=== PATIENT | male | born 1945 | race Caucasian/White ===

== ENCOUNTER 2016-12-03 10:50 | Emergency (ER) | payer MEDICARE, OTHER ==
[2016-12-03 09:31] LABS: BASOPHILS 0.2 %; BASOPHILS ABSOLUTE 0.01 10/3/uL (0.0-0.16); EOSINOPHILS 5.7 %; EOSINOPHILS ABSOLUTE 0.36 10/3/uL (0.0-0.53); HEMATOCRIT 36.4 % (40.0-51.0); HEMOGLOBIN 12.9 g/dL (13.6-17.8); IMMATURE GRANULOCYTES 0.2 %; IMMATURE GRANULOCYTES ABSOLUTE 0.01 10/3/uL (0.0-0.11); LYMPHOCYTES 21.9 %; LYMPHOCYTES ABSOLUTE 1.38 10/3/uL (0.67-4.30); MEAN CORPUS HGB CONC 35.4 g/dL (32.0-36.0); MEAN CORPUSCULAR HEMOGLOB 32.4 pg (26.0-34.0); MEAN CORPUSCULAR VOLUME 91.5 fL (80-100); MONOCYTES 4.4 %; MONOCYTES ABSOLUTE 0.28 10/3/uL (0.21-1.20); NEUTROPHILS 67.6 %; NEUTROPHILS ABSOLUTE 4.26 10/3/uL (2.02-8.40); PLATELET COUNT 169 10/3/uL (150-400); RBC DISTRIBUTION WIDTH 13.2 % (12.0-16.0); RED CELL COUNT 3.98 10/6/uL (4.7-6.1); WHITE BLOOD CELLS 6.3 10/3/uL (4.5-10.5)
[2016-12-03 09:32] LABS: MANUAL DIFF NO %
[2016-12-03 09:39] LABS: INTERNATIONAL NORMAL RATI 1.2 UNITS (-); PARTIAL THROMBO TIME 32.4 SEC (22.5-37.2); PROTIME (NOT ORD) 14.7 SEC (12.0-14.5)
[2016-12-03 09:47] LABS: BUN (BLOOD UREA NITROGEN) 32 MG/DL (6-23); CALCIUM, SERUM 8.9 MG/DL (8.5-10.4); CHEST PAIN PROFILE TAT 0 Hrs 20 Mins; CHLORIDE, SERUM 105 MMOL/L (96-112); CO2 (CARBON DIOXIDE) 26 MMOL/L (24-34); CREATININE 1.66 MG/DL (0.70-1.30); GFR AFRICAN AMERICAN 47 ML/MIN (>=60); GFR NON AFRICAN AMERICAN 41 ML/MIN (>=60); GLUCOSE, SERUM 169 MG/DL (60-99); POTASSIUM, SERUM 3.9 MMOL/L (3.5-5.3); SODIUM, SERUM 141 MMOL/L (135-148); TROPONIN I <0.02 NG/ML (<0.05)
[2017-02-09] MEDS ORDERED: ASA5GR PO (16:20)
[2017-02-09] MEDS ORDERED: NORV10 PO (16:20)
[2017-02-09] MEDS ORDERED: ATEN50 PO (16:21)
[2017-02-09] MEDS ORDERED: COREG6 PO (16:21)
[2017-02-09] MEDS ORDERED: CELEXA20 PO (16:22)
[2017-02-09] MEDS ORDERED: CETIRIZINE HCL5 MG PO (16:22)
[2017-02-09] MEDS ORDERED: MIRAPEX5 PO (16:23)
[2017-02-09] MEDS ORDERED: GLUCOTROL5 PO (16:23)
[2017-02-09] MEDS ORDERED: MAXZIDE PO (16:23)
[2017-02-09] MEDS ORDERED: LISINOPRIL40 MG PO (16:23)
[2017-02-09] MEDS ORDERED: MULTIVITAMI1 PO (16:24)
[2017-02-09] MEDS ORDERED: VITE PO (16:24)
[2017-02-09] MEDS ORDERED: VITC500 PO (16:24)
[2017-02-09] MEDS ORDERED: FISH OIL1200 MG PO (16:24)
== END 2016-12-03 15:12 | disposition home or self-care (01) ==
LOC: ER 10:50
PROVIDERS: Nurse Practitioner
DX: I12.9 Hypertensive chronic kidney disease with stage 1 through stage 4 chronic kidney disease, or unspecified chronic kidney disease (principal); N18.9 Chronic kidney disease, unspecified; G20 Parkinson's disease; G35 Multiple sclerosis
CPT/HCPCS: 71010; 80048; 83735; 83880; 84484; 85025; 85610; 85730; 93005; 99284

== ENCOUNTER 2017-02-13 10:28 | Inpatient (IN) | payer MEDICARE, OTHER ==
--- NOTE | ~2017-02-13 | CN ---
Consultation Report [place] [address] [facility] [place]. [address] NAME: SIMBA ZAYAS : 45 STATUS : ADM IN PAT#: [id number] AGE: 71 ADM/REG DATE : 02/13/17 MR#: [id number] REPORT SERV DATE: 02/14/17 DICTATED BY: RAMOS MEDLEY DATE: 02/13/17 REPORT STATUS : Draft TRANSCRIBED BY: MODL DATE: 02/13/17 CONSULTATION. DATE OF CONSULTATION: 02/13/2017 PERTINENT HISTORY: The patient is a 71-year-old gentleman from Dr. Ernie Ordoñez from the [facility] with very critical left main coronary stenosis noted to be approximately 98% in maximal diameter metric stenotic lesion. The patient referred for emergent cardiac surgical revascularization. PAST MEDICAL HISTORY: Significant for no previous open cardiothoracic surgery, with history of hypertension, hyperlipidemia. No previous myocardial infarction. No previous stroke. SOCIAL HISTORY: Negative for tobacco or ethanol use. FAMILY HISTORY: Noncontributory. REVIEW OF SYSTEMS: Significant only for the recent onset of chest pain. PHYSICAL EXAMINATION: VITAL SIGNS: Afebrile, blood pressure was 160/90, heart rate was 70. CONSTITUTIONAL: Well-developed, well-nourished male. He was in no acute distress. RESPIRATORY: Showed chest was clear bilaterally. CV: Showed regular rhythm. No murmur noted. VASCULAR: Showed full pulses throughout. GI: Showed abdomen is soft, nontender without masses. MUSCULOSKELETAL: Shows extremities warm and dry. No edema. SKIN: Showed no obvious rash. : Showed normal male external genitalia. PSYCH: Normal. NEUROLOGIC: Intact. The cardiac catheterization reviewed by myself showed graded 95% stenosis of the left main coronary artery with a very small diminutive LAD artery but with a large first diagonal artery, also large circumflex artery. Right coronary artery showed no significant disease. Left ventricular function is preserved. IMPRESSION: Right now is critical left main coronary artery stenosis. PLAN: Proceed with coronary revascularization urgently. /MODL Consultation Report [place] [address] [facility] [place]. [address] NAME: SIMBA ZAYAS : 45 STATUS : ADM IN PAT#: [id number] AGE: 71 ADM/REG DATE : 02/13/17 MR#: [id number] REPORT SERV DATE: 02/14/17 DICTATED BY: RAMOS MEDLEY DATE: 02/13/17 REPORT STATUS : Draft TRANSCRIBED BY: MARGARITA DATE: 02/13/17 Ramos Medley M.D. / [id number] CC: Varun Schulz MD
--- NOTE | ~2017-02-13 | CN ---
Consultation Report [facility] [address] [place]. [address] NAME: SIMBA ZAYAS : 45 STATUS : ADM IN PAT#: [id number] AGE: 71 ADM/REG DATE : 02/13/17 MR#: [id number] REPORT SERV DATE: 02/16/17 DICTATED BY: LEXIE CUETO DATE: 02/16/17 REPORT STATUS : Draft TRANSCRIBED BY: MODL DATE: 02/16/17 CONSULTATION DATE OF CONSULTATION: 02/16/2017 REASON FOR CONSULTATION: Management of type 2 diabetes mellitus. IMPRESSION: 1. Type 2 diabetes mellitus. 2. Parkinson disease. 3. Hypertension. 4. Cardiovascular disease, status post CABG. 5. Dysphagia postoperative. 6. Chronic kidney disease, stage 3. 7. Acute blood loss anemia. 8. Thrombocytopenia. PLAN: Start patient on level 2 sliding scale as ordered. Hold oral diabetic medications in this patient who is kept n.p.o. Check a hemoglobin A1c. Diabetic education to see. At this time, he does not have any significant evidence of tremors. Will continue Mirapex and it seems to have managed his Parkinson's really well. A swallow study has already been ordered for his dysphagia and will be followed up. We will check fingerstick blood glucose at bedtime and before meals. We thank you for this consultation, and the hospitalist department will follow with you. BRIEF HISTORY OF PRESENT ILLNESS: The patient is a 71-year-old white male, presented to the hospital with exertion, burning sensation in the left side of his chest and worsening shortness of breath, so he was admitted. He underwent cardiac catheterization, found to have a multivessel coronary artery disease, and then was taken to the operating room. Postoperatively, this patient had some elevated sugars. He was a known diabetic. Medicine Service was asked to see the patient. This patient reports that he is feeling well. His pain is well controlled. He is currently n.p.o. because evidence of having some difficulty swallowing and started choking and coughing when he tried to swallow any type of liquids. He denies any chest pain. He denies any nausea, vomiting, fever, chills. He has not had a bowel movement yet. The rest of the 10-point review of systems was negative. PAST MEDICAL HISTORY: Significant for cardiovascular disease, hypertension, type 2 diabetes mellitus, ventricular fascicular block, obesity, Parkinson disease. PAST SURGICAL HISTORY: Significant for a skin cancer removed from the nose and a recent coronary artery bypass graft. ALLERGIES: NO KNOWN DRUG ALLERGIES. Consultation Report [address] [place]. [address] NAME: SIMBA ZAYAS : 45 STATUS : ADM IN PAT#: [id number] AGE: 71 ADM/REG DATE : 02/13/17 MR#: [id number] REPORT SERV DATE: 02/16/17 DICTATED BY: LEXIE CUETO DATE: 02/16/17 REPORT STATUS : Draft TRANSCRIBED BY: MARGARITA DATE: 02/16/17 HOME MEDICATIONS: Amlodipine 10 mg once daily, vitamin C 1000 mg once daily, aspirin 325 mg daily, Tenormin 50 mg p.o. daily, Zyrtec 5 mg once daily, Celexa 20 mg once daily, Glucotrol 5 mg once daily, lisinopril 40 mg once daily, multivitamins one tablet daily, fish oil 1200 mg once daily, Mirapex 0.5 mg p.o. three times daily, vitamin E 400 units once daily, and Maxzide 50 mg tablet once p.o. daily. SOCIAL HISTORY: The patient denies use of alcohol, tobacco, or illicit substances. Lives at home. FAMILY HISTORY: Father with multiple heart attacks and coronary artery disease. Mother with Parkinson disease. PHYSICAL EXAMINATION: GENERAL: White male, lying in bed, appears to be in no obvious respiratory distress. He is awake and alert. He is oriented. VITAL SIGNS: Blood pressure is 125/68, saturation 97% on 4 L of nasal cannula, temperature is 98.2. HEENT: Head is normocephalic, atraumatic. Pupils are equal, round, and reactive to light. Extraocular muscles are intact. Sclerae anicteric. Conjunctivae normal. Oropharynx without lesion. Tongue protrudes in midline. Uvula midline. NECK: Supple. No evidence of jugular venous distention. No carotid bruits or thyromegaly is appreciated. The line insertions in the right neck have been removed and well dressed. There is no oozing or bleeding noted. HEART: Regular rate and rhythm. No murmurs, rubs, or gallops are heard. PMI is nondisplaced. LUNGS: Fairly clear to auscultation anteriorly. Some expiratory wheezing in both axillary areas is noted. ABDOMEN: Soft, nontender, good bowel sounds. No rebound or guarding. No organomegaly. EXTREMITIES: Without cyanosis, clubbing, or edema. NEUROLOGIC: There is no rigidity, no cogwheeling. Rest of the neurological exam seem to be grossly intact. LABORATORY DATA: Sodium 141, potassium 4.3, chloride 110, bicarb 24, BUN 38, creatinine 2.15, baseline creatinine around 1.6 with patient's known history of chronic kidney disease. Glucose is 101, magnesium is 2.0, calcium is 8.8. No hemoglobin A1c was done during this admission. White count is 10.7, hemoglobin of 8.6, hematocrit 25, platelet count is 93. No left shift. INR is 1.5, PT is 18. Once again, we thank you for this consultation, and we will follow with you. LADAN/MARGARITA [facility] Consultation Report [place] [id number] [place]. [address] NAME: SIMBA ZAYAS : 45 STATUS : ADM IN [facility]#: [id number] AGE: 71 ADM/REG DATE : 02/13/17 MR#: [id number] REPORT SERV DATE: 02/16/17 DICTATED BY: LEXIE CUETO P. DATE: 02/16/17 REPORT STATUS : Draft TRANSCRIBED BY: MARGARITA DATE: 02/16/17 Varun Cueto / [id number] CC: Varun Schulz RONNIE LEE
--- NOTE | ~2017-02-13 | OP ---
Record Of Operation [facility] [address] [place]. [address] NAME: SIMBA ZAYAS : 45 STATUS : ADM IN PAT#: [id number] AGE: 71 ADM/REG DATE : 02/13/17 MR#: [id number] REPORT SERV DATE: 02/14/17 DICTATED BY: RAMOS MEDLEY DATE: 02/13/17 REPORT STATUS : Draft TRANSCRIBED BY: MODL DATE: 02/13/17 DATE OF PROCEDURE: 02/13/2017 PREOPERATIVE DIAGNOSIS: Left main coronary artery stenosis. POSTOPERATIVE DIAGNOSIS: Left main coronary artery stenosis. PROCEDURE: Emergent coronary artery bypass graft x2 with endoscopic vein harvest utilizing left internal mammary artery to the LAD artery and reverse saphenous vein graft from the aorta to the obtuse marginal artery. Also transesophageal echocardiography. SURGEON: Ramos Medley M.D. ANESTHESIA: General endotracheal anesthesia, AA. Chest tubes placed were two. Pacing wires two on the right ventricle and two on the right atrium. PERTINENT HISTORY: The patient is a 71-year-old gentleman, referred emergently to the lab[facility] by Dr. Ordoñez with left main coronary artery stenosis noted to be approximately greater than 95%. OPERATIVE FINDINGS: Transesophageal echocardiogram demonstrated no significant valvular heart disease. DESCRIPTION OF PROCEDURE: The patient was taken to the operating room and placed in supine position. Anesthesia was obtained. The patient was prepped and draped in the usual sterile fashion. Transesophageal echocardiogram was performed demonstrating no valvular heart disease. The greater saphenous vein was harvested from the lower extremities with invasive technique and those wounds were closed in a two-layer fashion. A midline sternotomy incision was made. Sternum was divided. The left internal mammary artery was dissected and found to have good flow. Heparin was infused. The patient was started on cardiopulmonary bypass. Cross-clamp was applied. Cardioplegia was infused in antegrade retrograde fashion over a period of 15 minutes. The obtuse marginal artery was bypassed with reversed saphenous vein graft in an end-to-side fashion. The cross-clamp was then placed with single proximal anastomosis and sewn to the ascending aorta in the usual manner. The left internal mammary artery was then used to bypass the LAD artery in an end-to-side fashion. The cross- clamp was then removed. Good hemostasis was noted. Two pacing wires were placed on the right ventricle and two on the right atrium and two chest tubes were placed. The patient was warmed to 36 centigrade and maintained a sinus rhythm. He was weaned from cardiopulmonary bypass with mild inotropic support. Protamine sulfate was infused. Hemostasis was adequate. Sternum was closed with four sternal cables. Soft tissue was closed in the usual manner. Sterile dressings were applied. The patient tolerated the procedure well and taken back to the ICU in stable condition. Record Of Operation [address] [place]. [address] NAME: SIMBA ZAYAS : 45 STATUS : ADM IN [facility]#: [id number] AGE: 71 ADM/REG DATE : 02/13/17 MR#: [id number] REPORT SERV DATE: 02/14/17 DICTATED BY: RAMOS MEDLEY DATE: 02/13/17 REPORT STATUS : Draft TRANSCRIBED BY: MARGARITA DATE: 02/13/17 HANK/MARGARITA Ramos Medley M.D. / [id number] CC: Varun Schulz Ronnie Lee
--- NOTE | ~2017-02-13 | DS ---
Discharge Summary [facility] [address] [place]. [address] NAME: SIMBA ZAYAS : 45 STATUS : DIS IN PAT#: [id number] AGE: 71 ADM/REG DATE : 02/13/17 MR#: [id number] REPORT SERV DATE: 03/01/17 DICTATED BY: RAMOS MEDLEY DATE: 03/01/17 REPORT STATUS : Draft TRANSCRIBED BY: MARGARITA DATE: 03/01/17 Data Collection from hospitalization DISCHARGE DIAGNOSIS(ES): 1. Left main coronary artery stenosis. 2. Class 2 angina. 3. Hypertension. 4. Hyperlipidemia. 5. Type 2 diabetes mellitus. 6. Obesity. 7. Parkinson disease. CONSULTATIONS: Ernie Ordoñez M.D. and Daniel Cueto M.D. PROCEDURES PERFORMED: 1. Left heart catheterization, left ventriculography, coronary angiography, 02/13/2017. 2. Emergent coronary artery bypass graft x2 with endoscopic vein harvest utilizing left internal mammary artery to the LAD artery and reverse saphenous vein graft from the aorta to the obtuse marginal artery, also transesophageal echocardiography, 02/13/2017. MEDICATIONS: Norvasc 10 mg daily, aspirin 325 mg daily, Celexa 20 mg daily, Plavix 75 mg daily. Zyrtec 5 mg daily, multivitamin without minerals daily, fish oil 1200 mg daily, Mirapex 0.5 mg three times daily, vitamin E 400 units daily, Maxzide one daily, Glucotrol 5 mg daily, vitamin C 1000 mg daily, and [place] 5/325 one or two every 4 hours as needed. CONDITION AT DISCHARGE: Upon discharge, he did appear to be doing well and had no complaints. DISPOSITION: He had been discharged home to continue an 1800-calorie ADA diet with activity as discussed. He was to follow up with Dr. Ernie Ordoñez on 03/06/2017, follow up with myself on 03/12/2017, and follow up with Elmer Corona in three to four weeks. HOSPITAL COURSE: This 71-year-old male had stated that with exertion he had burning sensation in the left side of his chest and worsening shortness of breath. He had not had any syncope or edema. He was admitted for further evaluation and treatment. Upon admission to the hospital, he did undergo the above left heart catheterization. He tolerated this well and was transferred to the recovery room secondary to the findings of the catheterization. I had seen the patient in consultation and had discussed coronary bypass grafting with him in detail and he was agreeable to proceed. He was then taken to the operating room where he did undergo the above emergent coronary artery bypass graft x2. He had tolerated this procedure well also and was transferred to the recovery room in satisfactory condition. On postop day #1, he did appear to be in stable condition and had no new complaints. He was on sliding scale insulin level 2 for blood glucose control for his diabetes. He was felt to be hemodynamically and rhythmically stable. On postop day #2, he did continue to do well and his pacing wires were removed. He was afebrile, and his vital signs were stable. On postop day #3, he had been evaluated by Dr. Daniel Cueto for management of his type 2 diabetes. He had been placed on level 2 sliding scale insulin as ordered, and his oral diabetic medications were on hold while he is n.p.o. Hemoglobin A1c Discharge Summary [address] [address] NAME: SIMBA ZAYAS : 45 STATUS : DIS IN PAT#: [id number] AGE: 71 ADM/REG DATE : 02/13/17 MR#: [id number] REPORT SERV DATE: 03/01/17 DICTATED BY: RAMOS MEDLEY DATE: 03/01/17 REPORT STATUS : Draft TRANSCRIBED BY: MARGARITA DATE: 03/01/17 was also to be checked, and he was to undergo diabetic education while in the hospital. He was continued on Mirapex as it seemed to have managed his Parkinson's really well. He did however have some complaints of nausea. He was noted to be in sinus rhythm on telemetry. His metoprolol was increased. He did undergo a bedside swallowing evaluation and a regular diet with thin liquids was recommended. He did undergo diabetic education. On postop day #4, he was afebrile and his vital signs had remained stable. He did continue in sinus rhythm on telemetry and had no new complaints noted. His Nitrol ointment was changed to Nitro-Dur. On postop day #5, he did state that he was feeling better, and he continued to do well. However, he was noted to be feeling somewhat weak. He did remain in stable condition and was then discharged on 02/19/2017 with the above instructions. Information collected by: Jennifer Goldsmith. I submit the above information as my discharge summary. IRAIS/MARGARITA Ramos Medley M.D. / [id number] CC: Varun Schulz M.D.
--- NOTE | ~2017-02-13 | OP ---
Record Of Operation [facility] [address] [place]. [address] NAME: SIMBA ZAYAS : 45 STATUS : ADM IN PAT#: [id number] AGE: 71 ADM/REG DATE : 02/13/17 MR#: [id number] REPORT SERV DATE: 02/14/17 DICTATED BY: CHARLENE ORDOÑEZ DATE: 02/13/17 REPORT STATUS : Draft TRANSCRIBED BY: MODL DATE: 02/13/17 DATE OF PROCEDURE: 02/13/2017 PROCEDURE: Left heart catheterization, left ventriculography, coronary angiography. INDICATIONS: Class 2 angina, jeopardy on myocardial perfusion scan. JAVASCRIPT UI DEVELOPER: Charlene Ordoñez M.D., [facility], [facility]. PROCEDURE NOTE: Informed consent obtained. The patient was brought to catheterization laboratory in the fasting state with renal prophylaxis protocol initiated. Routine sterile prep and drape performed. Monitored sedation administered. 2% Xylocaine with epinephrine infiltrated to right groin. A 6-[place] sheath to right femoral artery following anterior wall puncture. A 6-[place] angled pigtail catheter across the aortic valve without difficulty. Left ventricular pressures recorded. Left ventriculography in DENG projection. Pullback to ascending aorta under pressure recording. Catheter exchanged for 6-[place] JL4 diagnostic catheter, which engaged the ostium of left main coronary artery with pressure dampening. Coronary angiography performed in multiple views revealing critical left main coronary artery disease. Heparin and intravenous nitroglycerin were begun with a gradual relief of symptoms. Catheter exchanged for 6-[place] JR4 diagnostic catheter which engaged ostium of right coronary artery and angiography of this vessel performed. All catheters removed. Sheath sutured to the skin in a "strain-relieved" fashion. Cardiac surgery consulted emergently in anticipation of urgent CABG. TOTAL CONTRAST: 85 mL Isovue-370. TOTAL X-RAY DOSE: 479 mGy. MONITORED SEDATION: 34 minutes. ESTIMATED BLOOD LOSS: 10 mL. FINDINGS: Hemodynamics: Central aortic pressure 160/60 mmHg, mean 100 mmHg (prior to initiation of nitroglycerin dose). Left ventricular pressure 160/20 mmHg. Left Ventriculography: In DENG left ventriculography, all segments moved normally. Ejection fraction is estimated to be no lower than 55%. No mitral regurgitation identified. Coronaries: 1. Left main coronary artery: Short and calcified vessel with diffuse disease and 90 plus percent pre-bifurcation narrowing. Streaming in the left main coronary artery identified which may represent dissection and/or thrombus. 2. LAD: Small caliber vessel barely reaching the apex of the heart. Large high diagonal vessel fills antegrade. 3. Circumflex: Large caliber, angiographically nondominant vessel giving rise to small ramus intermedius vessel, medium caliber first obtuse marginal vessel and terminating Record Of Operation [address] [place]. [address] NAME: SIMBA ZAYAS : 45 STATUS : ADM IN PAT#: [id number] AGE: 71 ADM/REG DATE : 02/13/17 MR#: [id number] REPORT SERV DATE: 02/14/17 DICTATED BY: CHARLENE ORDOÑEZ DATE: 02/13/17 REPORT STATUS : Draft TRANSCRIBED BY: MARGARITA DATE: 02/13/17 as posterolateral artery. 4. Right coronary artery medium caliber, angiographically dominant vessel terminating as posterolateral and posterior descending arteries. FINAL IMPRESSION: 1. Mildly elevated LVEDP. 2. Normal LVEF without segmental wall motion abnormalities. 3. No mitral regurgitation. 4. Critical left main coronary artery ostial stenosis. 5. Patent left anterior descending artery, circumflex, and right coronary arteries. 6. Emergent CABG recommended. /MARGARITA Charlene Ordoñez M.D. / [id number] CC: Ramos Medley M.D.
[~2017-02-13 10:28] MED LIST: ASA5GR PO; ATEN50 PO; CELEXA20 PO; CETIRIZINE HCL5 MG PO; COREG6 PO; FISH OIL1200 MG PO; GLUCOTROL5 PO; LISINOPRIL40 MG PO; MAXZIDE PO; MIRAPEX5 PO; MULTIVITAMI1 PO; NORV10 PO; VITC500 PO; VITE PO
[2017-02-13 11:18] LABS: BASOPHILS 0.2 %; BASOPHILS ABSOLUTE 0.01 10/3/uL (0.0-0.16); EOSINOPHILS 5.6 %; EOSINOPHILS ABSOLUTE 0.37 10/3/uL (0.0-0.53); HEMATOCRIT 35.4 % (40.0-51.0); HEMOGLOBIN 12.1 g/dL (13.6-17.8); IMMATURE GRANULOCYTES 0.2 %; IMMATURE GRANULOCYTES ABSOLUTE 0.01 10/3/uL (0.0-0.11); LYMPHOCYTES 31.8 %; MEAN CORPUS HGB CONC 34.2 g/dL (32.0-36.0); MEAN CORPUSCULAR HEMOGLOB 31.5 pg (26.0-34.0); MEAN CORPUSCULAR VOLUME 92.2 fL (80-100); MEAN PLATELET VOLUME 10.3 fL (9.2-13.0); MONOCYTES 4.2 %; MONOCYTES ABSOLUTE 0.28 10/3/uL (0.21-1.20); NEUTROPHILS ABSOLUTE 3.84 10/3/uL (2.02-8.40); PLATELET COUNT 150 10/3/uL (150-400); RBC DISTRIBUTION WIDTH 13.8 % (12.0-16.0); RED CELL COUNT 3.84 10/6/uL (4.7-6.1); WHITE BLOOD CELLS 6.6 10/3/uL (4.5-10.5)
[2017-02-13 11:19] LABS: MANUAL DIFF NO %
[2017-02-13 11:30] LABS: BUN (BLOOD UREA NITROGEN) 32 MG/DL (6-23); CALCIUM, SERUM 8.7 MG/DL (8.5-10.4); CHLORIDE, SERUM 110 MMOL/L (96-112); CO2 (CARBON DIOXIDE) 27 MMOL/L (24-34); CREATININE 1.66 MG/DL (0.70-1.30); GFR AFRICAN AMERICAN 47 ML/MIN (>=60); GFR NON AFRICAN AMERICAN 41 ML/MIN (>=60); POTASSIUM, SERUM 4.1 MMOL/L (3.5-5.3); SODIUM, SERUM 141 MMOL/L (135-148)
[2017-02-13 11:31] LABS: GLUCOSE, SERUM 126 MG/DL (60-99)
[2017-02-13 22:11] LABS: BE (BASE EXCESS) -4.7 MEQ/L (0 +/- 2.5); CARBOXYHEMOGLOBIN 0.3 % (0-3); HCO3 (ACTUAL BICARBONATE) 20.7 MEQ/L (23-27); HEMOBLOGIN CONTENT 10.5 G/DL (14-18); INSTRUMENT SERIAL # 11843; METHEMOGLOBIN 0.7 % (0-3); MODE SIMV; OPERATOR ID 32193; PCO2 (CO2 TENSION) 39 MMHG (35-45); PO2 (O2 TENSION) 241 MMHG (79-93); SAMPLE Arterial; TIDAL VOLUME 600 ML; pH 7.34 (7.37-7.43)
[2017-02-13 22:16] LABS: BASOPHILS 0.1 %; BASOPHILS ABSOLUTE 0.01 10/3/uL (0.0-0.16); EOSINOPHILS 3.9 %; EOSINOPHILS ABSOLUTE 0.41 10/3/uL (0.0-0.53); HEMOGLOBIN 9.9 g/dL (13.6-17.8); IMMATURE GRANULOCYTES 0.2 %; IMMATURE GRANULOCYTES ABSOLUTE 0.02 10/3/uL (0.0-0.11); LYMPHOCYTES 16.7 %; LYMPHOCYTES ABSOLUTE 1.75 10/3/uL (0.67-4.30); MEAN CORPUS HGB CONC 34.7 g/dL (32.0-36.0); MEAN CORPUSCULAR HEMOGLOB 31.9 pg (26.0-34.0); MEAN CORPUSCULAR VOLUME 91.9 fL (80-100); MEAN PLATELET VOLUME 9.9 fL (9.2-13.0); MONOCYTES 3.2 %; MONOCYTES ABSOLUTE 0.33 10/3/uL (0.21-1.20); NEUTROPHILS 75.9 %; NEUTROPHILS ABSOLUTE 7.93 10/3/uL (2.02-8.40); PLATELET COUNT 119 10/3/uL (150-400); RBC DISTRIBUTION WIDTH 13.7 % (12.0-16.0)
[2017-02-13 22:18] LABS: HEMATOCRIT 28.5 % (40.0-51.0); MANUAL DIFF NO %; WHITE BLOOD CELLS 10.5 10/3/uL (4.5-10.5)
[2017-02-13 22:24] LABS: INTERNATIONAL NORMAL RATI 1.6 UNITS (-); PARTIAL THROMBO TIME 38.2 SEC (22.5-37.2); PROTIME (NOT ORD) 18.5 SEC (12.0-14.5)
[2017-02-13 22:36] LABS: CHLORIDE, SERUM 116 MMOL/L (96-112); CO2 (CARBON DIOXIDE) 23 MMOL/L (24-34); GFR AFRICAN AMERICAN 54 ML/MIN (>=60); GFR NON AFRICAN AMERICAN 46 ML/MIN (>=60); GLUCOSE, SERUM 127 MG/DL (60-99); POTASSIUM, SERUM 4.1 MMOL/L (3.5-5.3); SODIUM, SERUM 145 MMOL/L (135-148)
[2017-02-13 22:38] LABS: BUN (BLOOD UREA NITROGEN) 26 MG/DL (6-23)
[2017-02-14 03:18] LABS: HEMATOCRIT 30.8 % (40.0-51.0); HEMOGLOBIN 10.5 g/dL (13.6-17.8); MEAN CORPUS HGB CONC 34.1 g/dL (32.0-36.0); MEAN CORPUSCULAR HEMOGLOB 31.8 pg (26.0-34.0); MEAN CORPUSCULAR VOLUME 93.3 fL (80-100); MEAN PLATELET VOLUME 10.1 fL (9.2-13.0); PLATELET COUNT 146 10/3/uL (150-400); RBC DISTRIBUTION WIDTH 13.6 % (12.0-16.0); WHITE BLOOD CELLS 13.4 10/3/uL (4.5-10.5)
[2017-02-14 03:19] LABS: MANUAL DIFF YES %
[2017-02-14 03:30] LABS: BUN (BLOOD UREA NITROGEN) 27 MG/DL (6-23); CALCIUM, SERUM 8.4 MG/DL (8.5-10.4); CHLORIDE, SERUM 117 MMOL/L (96-112); CO2 (CARBON DIOXIDE) 23 MMOL/L (24-34); CREATININE 1.74 MG/DL (0.70-1.30); GFR AFRICAN AMERICAN 45 ML/MIN (>=60); GFR NON AFRICAN AMERICAN 39 ML/MIN (>=60); POTASSIUM, SERUM 4.2 MMOL/L (3.5-5.3); SODIUM, SERUM 148 MMOL/L (135-148)
[2017-02-14 03:31] LABS: GLUCOSE, SERUM 86 MG/DL (60-99)
[2017-02-14 03:37] LABS: BAND NEUTROPHILS 17 %; LYMPHOCYTES 9 %; LYMPHOCYTES ABSOLUTE (CALC) 1.21 10/3/uL (0.67-4.30); NEUTROPHILS ABSOLUTE (CALC) 12.19 10/3/uL (2.02-8.40); PLATELET ESTIMATE SLT DEC (ADEQUATE); RBC MORPHOLOGY NORM (NORMAL); SEGMENTED NEUTROPHIL (0) 74 %; TOTAL NUCLEATED CELLS 100
[2017-02-14 04:04] LABS: BE (BASE EXCESS) -6.9 MEQ/L (0 +/- 2.5); CARBOXYHEMOGLOBIN 0.5 % (0-3); DEVICE NC; HCO3 (ACTUAL BICARBONATE) 18.8 MEQ/L (23-27); HEMOBLOGIN CONTENT 10.8 G/DL (14-18); INSTRUMENT SERIAL # 8083; METHEMOGLOBIN 0.2 % (0-3); O2 CONTENT 14.7 VOL% (18-24); OPERATOR ID 32193; PCO2 (CO2 TENSION) 39 MMHG (35-45); PO2 (O2 TENSION) 100 MMHG (79-93); SAMPLE Arterial; pH 7.31 (7.37-7.43)
[2017-02-14 14:33] LABS: HEMOGLOBIN 9.4 g/dL (13.6-17.8)
[2017-02-14 14:34] LABS: HEMATOCRIT 27.2 % (40.0-51.0)
[2017-02-14 14:43] LABS: POTASSIUM, SERUM 4.2 MMOL/L (3.5-5.3)
[2017-02-14 18:33] LABS: HEMATOCRIT 27.5 % (40.0-51.0); HEMOGLOBIN 9.6 g/dL (13.6-17.8)
[2017-02-14 18:58] LABS: INTERNATIONAL NORMAL RATI 1.5 UNITS (-); PARTIAL THROMBO TIME 39.1 SEC (22.5-37.2); PROTIME (NOT ORD) 18.1 SEC (12.0-14.5)
[2017-02-15 04:31] LABS: BASOPHILS 0.2 %; BASOPHILS ABSOLUTE 0.02 10/3/uL (0.0-0.16); EOSINOPHILS 0.6 %; EOSINOPHILS ABSOLUTE 0.08 10/3/uL (0.0-0.53); HEMATOCRIT 25.9 % (40.0-51.0); HEMOGLOBIN 8.9 g/dL (13.6-17.8); IMMATURE GRANULOCYTES 0.1 %; IMMATURE GRANULOCYTES ABSOLUTE 0.01 10/3/uL (0.0-0.11); LYMPHOCYTES 11.5 %; LYMPHOCYTES ABSOLUTE 1.44 10/3/uL (0.67-4.30); MEAN CORPUS HGB CONC 34.4 g/dL (32.0-36.0); MEAN CORPUSCULAR HEMOGLOB 31.8 pg (26.0-34.0); MEAN CORPUSCULAR VOLUME 92.5 fL (80-100); MEAN PLATELET VOLUME 10.2 fL (9.2-13.0); MONOCYTES 4.9 %; MONOCYTES ABSOLUTE 0.62 10/3/uL (0.21-1.20); NEUTROPHILS 82.7 %; NEUTROPHILS ABSOLUTE 10.37 10/3/uL (2.02-8.40); WHITE BLOOD CELLS 12.5 10/3/uL (4.5-10.5)
[2017-02-15 04:33] LABS: MANUAL DIFF NO %; PLATELET COUNT 100 10/3/uL (150-400)
[2017-02-15 04:47] LABS: BUN (BLOOD UREA NITROGEN) 28 MG/DL (6-23); CALCIUM, SERUM 8.6 MG/DL (8.5-10.4); CHLORIDE, SERUM 109 MMOL/L (96-112); CO2 (CARBON DIOXIDE) 22 MMOL/L (24-34); CREATININE 2.06 MG/DL (0.70-1.30); GFR AFRICAN AMERICAN 36 ML/MIN (>=60); GFR NON AFRICAN AMERICAN 31 ML/MIN (>=60); POTASSIUM, SERUM 4.2 MMOL/L (3.5-5.3)
[2017-02-15 04:48] LABS: GLUCOSE, SERUM 142 MG/DL (60-99); SODIUM, SERUM 139 MMOL/L (135-148)
[2017-02-16 04:28] LABS: BASOPHILS 0.1 %; BASOPHILS ABSOLUTE 0.01 10/3/uL (0.0-0.16); EOSINOPHILS 2.8 %; HEMATOCRIT 25.1 % (40.0-51.0); HEMOGLOBIN 8.6 g/dL (13.6-17.8); IMMATURE GRANULOCYTES 0.2 %; IMMATURE GRANULOCYTES ABSOLUTE 0.02 10/3/uL (0.0-0.11); INTERNATIONAL NORMAL RATI 1.5 UNITS (-); LYMPHOCYTES 8.8 %; LYMPHOCYTES ABSOLUTE 0.94 10/3/uL (0.67-4.30); MANUAL DIFF NO %; MEAN CORPUS HGB CONC 34.3 g/dL (32.0-36.0); MEAN CORPUSCULAR VOLUME 93.3 fL (80-100); MEAN PLATELET VOLUME 10.6 fL (9.2-13.0); MONOCYTES 5.9 %; MONOCYTES ABSOLUTE 0.63 10/3/uL (0.21-1.20); NEUTROPHILS 82.2 %; NEUTROPHILS ABSOLUTE 8.76 10/3/uL (2.02-8.40); PLATELET COUNT 93 10/3/uL (150-400); PROTIME (NOT ORD) 18.1 SEC (12.0-14.5); RBC DISTRIBUTION WIDTH 14.1 % (12.0-16.0); RED CELL COUNT 2.69 10/6/uL (4.7-6.1); WHITE BLOOD CELLS 10.7 10/3/uL (4.5-10.5)
[2017-02-16 04:40] LABS: CALCIUM, SERUM 8.8 MG/DL (8.5-10.4); CHLORIDE, SERUM 110 MMOL/L (96-112); CO2 (CARBON DIOXIDE) 24 MMOL/L (24-34); CREATININE 2.15 MG/DL (0.70-1.30); GFR AFRICAN AMERICAN 35 ML/MIN (>=60); GFR NON AFRICAN AMERICAN 30 ML/MIN (>=60); POTASSIUM, SERUM 4.3 MMOL/L (3.5-5.3); SODIUM, SERUM 141 MMOL/L (135-148)
[2017-02-16 04:41] LABS: BUN (BLOOD UREA NITROGEN) 38 MG/DL (6-23); GLUCOSE, SERUM 101 MG/DL (60-99)
[2017-02-17 06:34] LABS: BASOPHILS 0.1 %; BASOPHILS ABSOLUTE 0.01 10/3/uL (0.0-0.16); EOSINOPHILS 3.9 %; HEMATOCRIT 23.1 % (40.0-51.0); HEMOGLOBIN 7.8 g/dL (13.6-17.8); IMMATURE GRANULOCYTES 0.1 %; IMMATURE GRANULOCYTES ABSOLUTE 0.01 10/3/uL (0.0-0.11); LYMPHOCYTES 15.8 %; MEAN CORPUS HGB CONC 33.8 g/dL (32.0-36.0); MEAN CORPUSCULAR HEMOGLOB 31.1 pg (26.0-34.0); MONOCYTES ABSOLUTE 0.53 10/3/uL (0.21-1.20); NEUTROPHILS 73.1 %; NEUTROPHILS ABSOLUTE 5.56 10/3/uL (2.02-8.40); PLATELET COUNT 116 10/3/uL (150-400); RBC DISTRIBUTION WIDTH 14.2 % (12.0-16.0); RED CELL COUNT 2.51 10/6/uL (4.7-6.1); WHITE BLOOD CELLS 7.6 10/3/uL (4.5-10.5)
[2017-02-17 06:40] LABS: MANUAL DIFF NO %
[2017-02-17 06:47] LABS: ALBUMIN 2.9 G/DL (3.5-5.0); CALCIUM, SERUM 8.5 MG/DL (8.5-10.4); CHLORIDE, SERUM 106 MMOL/L (96-112); CO2 (CARBON DIOXIDE) 24 MMOL/L (24-34); CREATININE 2.34 MG/DL (0.70-1.30); GFR AFRICAN AMERICAN 31 ML/MIN (>=60); GFR NON AFRICAN AMERICAN 27 ML/MIN (>=60); GLUCOSE, SERUM 108 MG/DL (60-99); PHOSPHORUS, SERUM 3.3 MG/DL (2.5-4.5); POTASSIUM, SERUM 3.9 MMOL/L (3.5-5.3); SODIUM, SERUM 136 MMOL/L (135-148)
[2017-02-17 06:48] LABS: BUN (BLOOD UREA NITROGEN) 55 MG/DL (6-23)
[2017-02-18 05:36] LABS: BASOPHILS 0.3 %; BASOPHILS ABSOLUTE 0.02 10/3/uL (0.0-0.16); EOSINOPHILS ABSOLUTE 0.38 10/3/uL (0.0-0.53); HEMATOCRIT 29.3 % (40.0-51.0); IMMATURE GRANULOCYTES 0.1 %; IMMATURE GRANULOCYTES ABSOLUTE 0.01 10/3/uL (0.0-0.11); LYMPHOCYTES 16.6 %; LYMPHOCYTES ABSOLUTE 1.27 10/3/uL (0.67-4.30); MEAN CORPUS HGB CONC 34.1 g/dL (32.0-36.0); MEAN CORPUSCULAR HEMOGLOB 31.1 pg (26.0-34.0); MEAN PLATELET VOLUME 10.6 fL (9.2-13.0); MONOCYTES 7.2 %; MONOCYTES ABSOLUTE 0.55 10/3/uL (0.21-1.20); NEUTROPHILS 70.8 %; NEUTROPHILS ABSOLUTE 5.43 10/3/uL (2.02-8.40); PLATELET COUNT 170 10/3/uL (150-400); RBC DISTRIBUTION WIDTH 14.7 % (12.0-16.0); RED CELL COUNT 3.22 10/6/uL (4.7-6.1); WHITE BLOOD CELLS 7.7 10/3/uL (4.5-10.5)
[2017-02-18 05:37] LABS: MANUAL DIFF NO %
[2017-02-18 05:46] LABS: BUN (BLOOD UREA NITROGEN) 51 MG/DL (6-23); CALCIUM, SERUM 8.7 MG/DL (8.5-10.4); CHLORIDE, SERUM 105 MMOL/L (96-112); CO2 (CARBON DIOXIDE) 25 MMOL/L (24-34); CREATININE 2.16 MG/DL (0.70-1.30); GFR AFRICAN AMERICAN 34 ML/MIN (>=60); GFR NON AFRICAN AMERICAN 30 ML/MIN (>=60); GLUCOSE, SERUM 117 MG/DL (60-99); POTASSIUM, SERUM 3.8 MMOL/L (3.5-5.3); SODIUM, SERUM 138 MMOL/L (135-148)
[2017-02-19 05:37] LABS: CALCIUM, SERUM 8.8 MG/DL (8.5-10.4); CHLORIDE, SERUM 106 MMOL/L (96-112); CO2 (CARBON DIOXIDE) 25 MMOL/L (24-34); CREATININE 1.76 MG/DL (0.70-1.30); GFR AFRICAN AMERICAN 44 ML/MIN (>=60); GFR NON AFRICAN AMERICAN 38 ML/MIN (>=60); POTASSIUM, SERUM 4.2 MMOL/L (3.5-5.3); SODIUM, SERUM 140 MMOL/L (135-148)
[2017-02-19 05:38] LABS: BUN (BLOOD UREA NITROGEN) 44 MG/DL (6-23); GLUCOSE, SERUM 144 MG/DL (60-99)
[2017-02-19] MEDS ORDERED: ASAB PO (12:31)
[2017-02-19] MEDS ORDERED: NITROII20C TOP (12:32)
[2017-02-19] MEDS ORDERED: TOPXL25 PO (12:32)
[2017-02-19] MEDS ORDERED: NORCO1 TA1 PO (12:35)
== END 2017-02-19 14:07 | disposition home or self-care (01) | DRG 234 ==
LOC: CORLMH 10:28 → SSU1 10:38 → CORLMH 21:14 → CVICU 21:15 → 5NO 02-15 16:26
PROVIDERS: Internal Medicine; Internal Medicine Cardiovascular Disease; Thoracic Surgery (Cardiothoracic Vascular Surgery)
PROC: 0210099 Bypass Coronary Artery, One Artery from Left Internal Mammary with Autologous Venous Tissue, Open Approach (ICD-10-PCS; 2017-02-13)
PROC: 06BQ3ZZ Excision of Left Saphenous Vein, Percutaneous Approach (ICD-10-PCS; 2017-02-13)
PROC: 06BP3ZZ Excision of Right Saphenous Vein, Percutaneous Approach (ICD-10-PCS; 2017-02-13)
PROC: B2111ZZ Fluoroscopy of Multiple Coronary Arteries using Low Osmolar Contrast (ICD-10-PCS; 2017-02-13)
PROC: B2151ZZ Fluoroscopy of Left Heart using Low Osmolar Contrast (ICD-10-PCS; 2017-02-13)
PROC: 5A1221Z Performance of Cardiac Output, Continuous (ICD-10-PCS; 2017-02-13)
PROC: B246ZZ4 Ultrasonography of Right and Left Heart, Transesophageal (ICD-10-PCS; 2017-02-13)
PROC: 4A023N7 Measurement of Cardiac Sampling and Pressure, Left Heart, Percutaneous Approach (ICD-10-PCS; principal; 2017-02-13 18:00)
PROC: 021009W Bypass Coronary Artery, One Artery from Aorta with Autologous Venous Tissue, Open Approach (ICD-10-PCS; 2017-02-13 18:00)
DX: I25.110 Atherosclerotic heart disease of native coronary artery with unstable angina pectoris (principal); N17.9 Acute kidney failure, unspecified; E11.22 Type 2 diabetes mellitus with diabetic chronic kidney disease; G20 Parkinson's disease; D69.6 Thrombocytopenia, unspecified; N18.3 Chronic kidney disease, stage 3 (moderate); R13.10 Dysphagia, unspecified; D62 Acute posthemorrhagic anemia; E78.5 Hyperlipidemia, unspecified; I12.9 Hypertensive chronic kidney disease with stage 1 through stage 4 chronic kidney disease, or unspecified chronic kidney disease; Z79.82 Long term (current) use of aspirin; Z79.4 Long term (current) use of insulin; I44.4 Left anterior fascicular block
CPT/HCPCS: 36415; 71010; 71020; 80048; 80069; 82330; 82803; 82805; 82947; 82962; 83036; 83735; 84132; 84295; 85014; 85018; 85025; 85347; 85610; 85730; 86850; 86900; 86901; 86920; 87641; 92610-GN; 93005; 93312; 93320; 93325; 93458; 94002; 94640; 94660; 94770; 99152; 99153; A9270-GY; C1713; C1725; C1769; C1894; G8996-CI-GN; G8997-CI-GN; G8998-CI-GN; J0690; J1644; J2150; J2250; J2370; J2405; J2440; J2720; J3010; J3370; J3475; P9016; P9045; P9047; Q9967